=== PATIENT | female | born 1995 | race Caucasian/White ===

== ENCOUNTER 2021-08-25 06:57 | Emergency (ER) | payer OTHER ==
[~2021-08-25] VITALS: Ht 157.5 cm; Wt 68.6 kg
[2021-08-25] MEDS ORDERED: PSEUDOEPHEDRINE 30 MG TAB PO STA (08:11)
[2021-08-25] MEDS ORDERED: ACETAMINOPHEN 325 MG TAB PO ONE (08:15)
[2021-08-25] MEDS ORDERED: ONDANSETRON 4MG ORAL DISINTEGRATING TAB PO ONE (08:15)
[2021-08-25 09:10] VITALS: BP 117/66
[2021-08-25] MEDS ORDERED: ONDA4TAB6 PO (09:30)
== END 2021-08-25 09:34 | disposition home or self-care (01) ==
LOC: M ED 06:57
DX: U07.1 COVID-19 (principal); Z86.69 Personal history of other diseases of the nervous system and sense organs

== ENCOUNTER → 2022-12-27 | Outpatient (REF) | payer OTHER ==
[~2022-12-27] MED LIST: ONDA4TAB6 PO
== END ==
LOC: M PLALAB 10:47
PROVIDERS: ATTEND Advanced Practice Midwife
DX: Z34.81 Encounter for supervision of other normal pregnancy, first trimester (principal); Z53.8 Procedure and treatment not carried out for other reasons

== ENCOUNTER → 2022-12-31 | Outpatient (CLI) | payer OTHER ==
[2022-12-31 18:41] LABS: HEMATOCRIT 32.1 % (36.0-47.0); MEAN CORPUSCULAR HEMOGLOBIN 31.3 pg (27.0-33.0); MEAN CORPUSCULAR HGB CONC 34.3 g/dl (32.0-36.5); MEAN CORPUSCULAR VOLUME 91.5 fl (80.0-96.0); PLATELET COUNT, AUTOMATED 226 10^3/uL (150-450); RED BLOOD COUNT 3.51 10^6/uL (4.00-5.40); WHITE BLOOD COUNT 9.7 10^3/uL (4.0-10.0)
[2022-12-31 19:34] LABS: HIV 1&2 SCREEN NEGATIVE (NEGATIVE)
[2022-12-31 19:41] LABS: HEPATITIS C VIRUS ABY INDEX 0.11 INDEX (<0.8)
[2022-12-31 19:44] LABS: GC DNA AMPLIFICATION NEGATIVE (NEGATIVE)
== END ==
LOC: M PLALAB 15:45
PROVIDERS: ATTEND Advanced Practice Midwife
DX: Z36.9 Encounter for antenatal screening, unspecified (principal)

== ENCOUNTER → 2023-01-25 | Outpatient (REF) | payer OTHER | LOC: M SFHCWAGY 12:33 | PROVIDERS: ATTEND Advanced Practice Midwife | DX: Z34.02 Encounter for supervision of normal first pregnancy, second trimester (principal) ==

== ENCOUNTER → 2023-02-18 | Outpatient (CLI) | payer OTHER | LOC: M WHC 07:01 | PROVIDERS: ATTEND Advanced Practice Midwife | DX: Z34.02 Encounter for supervision of normal first pregnancy, second trimester (principal); Z3A.20 20 weeks gestation of pregnancy ==

== ENCOUNTER 2023-03-12 14:02 | Emergency (ER) | payer OTHER ==
[~2023-03-12] VITALS: Ht 157.5 cm; Wt 87.5 kg
[2023-03-12 14:03] VITALS: TEMP 98.2; O2SAT 96
[2023-03-12 16:12] VITALS: BP 162/84
[2023-03-12] MEDS ORDERED: PRENTAB9 PO (16:39)
[2023-03-12] MEDS ORDERED: METF-838 PO (16:39)
[2023-03-12] MEDS ORDERED: ACET325C5 PO (16:39)
[2023-03-12] MEDS ORDERED: LEVO25TA5 PO (16:39)
[2023-03-12] MEDS ORDERED: AMOX500T PO (19:36)
[2023-03-12] MEDS ORDERED: OXYC1TAB23 PO (19:37)
== END 2023-03-12 16:23 | disposition admitted as inpatient to this hospital (09) ==
LOC: M ED 14:02
DX: O99.512 Diseases of the respiratory system complicating pregnancy, second trimester (principal); J01.90 Acute sinusitis, unspecified; Z3A.22 22 weeks gestation of pregnancy; Z53.21 Procedure and treatment not carried out due to patient leaving prior to being seen by health care provider

== ENCOUNTER 2023-03-12 16:24 | Outpatient (CLI) | payer OTHER ==
[~2023-03-12] VITALS: Ht 157.5 cm; Wt 85.4 kg
[2023-03-12] MEDS ORDERED: METF-838 PO (16:39)
[2023-03-12] MEDS ORDERED: LEVO25TA5 PO (16:39)
[2023-03-12] MEDS ORDERED: PRENTAB9 PO (16:39)
[2023-03-12] MEDS ORDERED: ACET325C5 PO (16:39)
[2023-03-12] MEDS ORDERED: HOME MED LIST COMPLETE! XX SCH (16:45)
[2023-03-12 16:48] VITALS: BP 129/71
[2023-03-12] MEDS ORDERED: FIORICET TAB PO ONE (17:25)
[2023-03-12 18:35] VITALS: TEMP 98.5
[2023-03-12] MEDS ORDERED: SUMAtriptan SUCCINATE 25 MG TAB PO ONE (19:00)
[2023-03-12 19:03] VITALS: BP 140/65
[2023-03-12 19:19] VITALS: BP 126/58
[2023-03-12] MEDS ORDERED: AMOXICILLIN 500 MG CAP PO ONE (19:35)
[2023-03-12] MEDS ORDERED: PERCOCET 5MG/325MG TAB PO ONE (19:35)
[2023-03-12] MEDS ORDERED: AMOX500T PO (19:36)
[2023-03-12] MEDS ORDERED: OXYC1TAB23 PO (19:37)
== END 2023-03-12 21:42 | disposition home or self-care (01) ==
LOC: M LDO 16:24
PROVIDERS: ATTEND Specialist
DX: O99.512 Diseases of the respiratory system complicating pregnancy, second trimester (principal); J01.90 Acute sinusitis, unspecified; O09.812 Supervision of pregnancy resulting from assisted reproductive technology, second trimester; Z3A.22 22 weeks gestation of pregnancy
CPT/HCPCS: 59025; 87486; 87581; 87633; 87798; 99281; G0463

== ENCOUNTER → 2023-03-27 | Outpatient (CLI) | payer OTHER ==
[~2023-03-27] MED LIST changes: +ACET325C5 PO; +AMOX500T PO; +LEVO25TA5 PO; +METF-838 PO; +OXYC1TAB23 PO; +PRENTAB9 PO
[2023-03-27 15:22] LABS: HEMATOCRIT 30.4 % (36.0-47.0); MEAN CORPUSCULAR HEMOGLOBIN 30.8 pg (27.0-33.0); MEAN CORPUSCULAR HGB CONC 32.9 g/dl (32.0-36.5); MEAN CORPUSCULAR VOLUME 93.5 fl (80.0-96.0); PLATELET COUNT, AUTOMATED 281 10^3/uL (150-450); RED BLOOD COUNT 3.25 10^6/uL (4.00-5.40); WHITE BLOOD COUNT 11.6 10^3/uL (4.0-10.0)
[2023-03-27 16:25] LABS: CHLAMYDIA DNA AMPLIFICATION NEGATIVE (NEGATIVE); GC DNA AMPLIFICATION NEGATIVE (NEGATIVE)
== END ==
LOC: M PLALAB 09:02
PROVIDERS: ATTEND Obstetrics & Gynecology
DX: Z34.02 Encounter for supervision of normal first pregnancy, second trimester (principal)

== ENCOUNTER → 2023-04-02 | Outpatient (CLI) | payer OTHER | LOC: M LAB 07:41 | PROVIDERS: ATTEND Advanced Practice Midwife | DX: O99.810 Abnormal glucose complicating pregnancy (principal); Z3A.00 Weeks of gestation of pregnancy not specified ==

== ENCOUNTER → 2023-06-07 | Outpatient (REF) | payer OTHER | LOC: M PLALAB 13:11 | PROVIDERS: ATTEND Advanced Practice Midwife | DX: Z34.03 Encounter for supervision of normal first pregnancy, third trimester (principal) ==